=== PATIENT | female | born 1965 | race Caucasian/White ===

== ENCOUNTER → 2021-05-05 | Outpatient (CLI) | payer OTHER ==
--- NOTE | 2021-05-05 14:49 | P.HPBAR ---
Bariatric H&P - History & Physicial H&P Date: 05/05/21 History & Physicial: Visit/CC: Patient initial contact: Initial weight: Initial weight in pounds: Height: Initial BMI: Last weight: Current weight: Current weight in pounds: Current BMI: [place] body weight (based on NIH guidelines): Excess body weight loss: The patient is a 55 year-old F who presents for Bariatric Assessment. HPI: She had a sleeve 5 to 6 years ago, Jul 2015. She was doing well. She was in [place], [place] and Dr. Rose from [facility]. "I had picture perfect recovery." She lost 100 pounds. She was doing well until 3 years after the surgery. Her mother got sick and she felt she had a heart attack. She was diagnosed with reflux. She lost teeth from her severe gastroesophageal reflux disease. She was on omeprazole and Zantac. She lost two teeth despite her medications. She had a colonoscopy and EGD in July 2020. She was told that her stomach was folded over and a hiatal hernia. She was 260 pounds with the sleeve. She then saw a surgeon who did an esophagram and did a hiatal hernia and then a gastric bypass at 200 pounds. She had the worst recovery following her sleeve, Dr. Lopez Núñez out of [place], [place]. She had hives after her surgery. She has only been able to tolerate soups and protein shakes. She reports 20 pound weight gain during the pandemic last year. She had her gastric bypass conversion February 2021 at 200 pounds. She is barely 2 months out. She can g et fluids in but has trouble with textured. 1. Recommend records from operation 2. Esophagram 3. EGD 4. Recommend full bariatric labs 5. Recommend food allergy assessment Bariatric Checklist Checklist: Plan: Checklist: EGD: 1. Hiatal hernia: 2. H. Pylori: HgbA1c: Vitamin D: Smoking: Primary care physician referral: Psychiatry clearance: Cardiology clearance: Sleep study: Diet journal: VTE risk score: VTE risk level: Rehab needs at discharge:
[2021-05-05 15:52] LABS: HCT 36.1 % (34.0-46.0); HGB 12.4 gm/dL (11.4-16.0); MCHC 34.5 g/dL (31.0-37.0); MCV 92.9 fL (80.0-100.0); Mean Platelet Volume 7.8; Platelet Count 182 k/uL (150-450); RBC 3.89 m/uL (3.80-5.40); RDW 13.3 % (11.5-15.5); WBC 4.3 k/uL (3.8-10.6)
[2021-05-05 16:22] LABS: Partial Thromboplastin Time 22.5 sec (22.0-30.0); Prothrombin Time 10.7 sec (9.0-12.0)
[2021-05-05 16:58] VITALS: BP 110/72; PULSE 72; RESP 18; TEMP 98.6; BMI 29.9
[2021-05-05 22:40] LABS: Hemoglobin A1C 5.1 % (4.0-6.0)
[2021-05-06 02:30] LABS: % Iron Saturation 10.26 (12.00-45.00); African American GFR (CKD) 113.8 (60.0-200.0); Albumin 4.5 g/dL (3.80-4.90); Albumin/Globulin Ratio 2.37 (1.60-3.17); Anion Gap 10.7 mmol/L (4.00-12.00); BUN/Creat Ratio 18.57 Ratio (12.00-20.00); Calcium 8.8 mg/dL (8.7-10.3); Carbon Dioxide 26.3 mmol/L (21.6-31.8); Chol/HDL Ratio 2.81; Globulin 1.9 g/dL (1.6-3.3); LDL Cholesterol,Calculated 34.4 mg/dL (0.0-131.0); Magnesium 2.2 mg/dL (1.5-2.4); Non-African American GFR(CKD) 98.2 (60.0-200.0); Phosphorus 3.3 mg/dL (2.4-5.1); Potassium 3.9 mmol/L (3.5-5.5); Total Bilirubin 0.4 mg/dL (0.3-1.2); Total Protein 6.4 g/dL (6.2-8.2); VLDL Calculation 32.6 mg/dL (5.00-40.00)
[2021-05-06 02:38] LABS: Ferritin 69.2 ng/mL (10.0-291.0)
[2021-05-06 02:41] LABS: Folate, Serum 8.5 ng/mL
[2021-05-06 10:31] LABS: Zinc, Serum 56 ug/dL (60-130)
[2021-05-07 06:09] LABS: Vitamin A 32 ug/dL (38-106)
[2021-05-07 13:06] LABS: Vit B1(Thiamine) 63 ug/L (38-122)
== END ==
LOC: BARWHC3 14:21
PROVIDERS: ATTEND Surgery Plastic and Reconstructive Surgery
DX: E66.01 Morbid (severe) obesity due to excess calories (principal); E89.1 Postprocedural hypoinsulinemia; D50.8 Other iron deficiency anemias; E44.0 Moderate protein-calorie malnutrition; E55.9 Vitamin D deficiency, unspecified; K74.1 Hepatic sclerosis; N19 Unspecified kidney failure; K50.90 Crohn's disease, unspecified, without complications; Z88.2 Allergy status to sulfonamides; Z68.30 Body mass index [BMI] 30.0-30.9, adult
CPT/HCPCS: 36415; 80053; 80061; 82306; 82525; 82607; 82728; 82746; 83036; 83540; 83550; 83735; 83970; 84100; 84134; 84255; 84425; 84443; 84590; 84630; 85027; 85610; 85730; 99203

== ENCOUNTER → 2021-05-24 | Outpatient (CLI) | payer OTHER ==
--- NOTE | 2021-05-24 10:16 | FL ---
EXAMINATION TYPE: FL barium swallow DATE OF EXAM: 05/24/2021 COMPARISON: None HISTORY: Dysphagia TECHNIQUE: A single contrast UGI study is performed. FINDINGS: Contrast passes from the distal esophagus through the gastric sleeve revision Monet-en-Y wit h mild hesitancy. No focal stenosis at the anastomosis is identified. There is complete stripping of the esophageal moshe gerardo in the horizontal drinking position. A secondary contraction however was noted during the exam. IMPRESSIONS: 1. No focal stenosis at the Monet-en-Y anastomosis identified. Some mild hesitancy may be present. 2. Mild presbyesophagus
== END | disposition home or self-care (01) ==
LOC: RADUSWWP 08:53
PROVIDERS: ATTEND Surgery Plastic and Reconstructive Surgery
DX: K22.8 Other specified diseases of esophagus (principal)
CPT/HCPCS: 74220

== ENCOUNTER 2021-05-31 07:18 | Day surgery (SDC) | payer OTHER ==
[2021-05-26 11:19] VITALS: BMI 29.1
--- NOTE | 2021-05-31 05:16 | P.GSHP ---
History of Present Illness H&P Date: 05/31/21 CHIEF COMPLAINT: GERD HISTORY OF PRESENT ILLNESS: The patient is a 55-year-old female who presents reports gastroesophageal reflux disease. Upper endoscopy was offered for further evaluation and management. PAST MEDICAL HISTORY: Please see list. PAST SURGICAL HISTORY: Please see list. MEDICATIONS: Please see list. ALLERGIES: Please see list. SOCIAL HISTORY: No illicit drug use FAMILY HISTORY: No reports of Crohn disease or ulcerative colitis. REVIEW OF ORGAN SYSTEMS: CONSTITUTIONAL: No reports of fevers or chills. GI: Denies any blood in stools or constipation. PHYSICAL EXAM: VITAL SIGNS: Stable GENERAL: Well-developed and pleasant in no acute distress. HEENT: No scleral icterus. Extraocular movements grossly intact. Moist buccal mucosa. NECK: Supple without lymphadenopathy. CHEST: Unlabored respirations. Equal bilateral excursions. CARDIOVASCULAR: Regular rate and rhythm. Distal 2+ pulses. ABDOMEN: Soft, nondistended. MUSCULOSKELETAL: No clubbing, cyanosis, or edema. ASSESSMENT: 1. Gastroesophageal reflux disease PLAN: 1. Recommend proceeding with an upper endoscopy Past Medical History Past Medical History: GERD/Reflux, Thyroid Disorder History of Any Multi-Drug Resistant Organisms: None Reported Past Surgical History: Bariatric Surgery, Hysterectomy Additional Past Surgical History / Comment(s): sleeve gastrectomy 2015 co nversion to gastric bypass - Past Anesthesia/Blood Transfusion Reactions: Postoperative Nausea & Vomiting (PONV) Smoking Status: Never smoker - Past Family History Father Additional Family Medical History / Comment(s): LUNG CANCER Mother Family Medical History: Cancer Additional Family Medical History / Comment(s): PANCREATIC CANCER Brother(s) Family Medical History: Cancer Additional Family Medical History / Comment(s): COLON , LUNG CANCER Medications and Allergies Home Medications Medication Instructions Recorded Confirmed Type Omeprazole 40 mg PO DAILY 05/07/21 05/26/21 History PARoxetine [Paxil] 10 mg PO DAILY 05/07/21 05/26/21 History Allergies Allergy/AdvReac Type Severity Reaction Status Date / Time Sulfa (Sulfonamide Allergy Rash/Hives Verified 05/26/21 10:36 Antibiotics)
[~2021-05-31 07:18] MED LIST: LACTATED RINGERS 1,000 ML IV SCH; LIDOCAINE 1% (10MG/ML) FOR IV START INTRADERMA PRN
[2021-05-31 07:50] VITALS: RESP 16; TEMP 98.3
[2021-05-31] MEDS ORDERED: PROPOFOL 10 MG/ML 20 ML VIAL IV ONE (08:00)
[2021-05-31] MEDS ORDERED: LIDOCAINE 1% INJ 10MG/ML (20 ML MDV) ONE (08:00)
--- NOTE | 2021-05-31 08:24 | P.PCN ---
Date of Procedure: 05/31/21 Description of Procedure: PREOPERATIVE DIAGNOSIS: Dysphagia. Gastroesophageal reflux disease Nausea with vomiting. POSTOPERATIVE DIAGNOSIS: Dysphagia. Gastroesophageal reflux disease Nausea with vomiting. Gastrojejunal stricture without chronic ulcer without perforation OPERATION: Esophagogastrojejunoscopy with balloon dilatation from 6 to 16.5 mm. SURGEON: Nicole Hernandez MD ANESTHESIA: MAC. INDICATIONS: The patient is a 55-year-old female who presents with a history of dysphagia, gastric bypass including intractable nausea and vomiting. Benefits and risks of the procedure were described. Informed consent was obtained. DESCRIPTION: The patient was brought into the endoscopy suite and laid in the left lateral decubitus position. After a timeout was confirmed, the procedure was initiated. An Olympus gastroscope was passed along the posterior oropharynx down to the distal esophagus where the squamocolumnar junction was unremarkable. The gastric pouch was entered. A gastrojejunal stricture of 6 mm was found as the adult gastroscope was 9.5 mm in size. A Savage IO balloon dilator was placed through the scope. Insufflation at 10 mm up to 16.5 mm was performed with a total of 2 minutes. The scope was advanced up to 60 cm from the incisors into the Monet limb. The mucosa of the gastrojejunal anastomosis was intact. No chronic gastrojejunal marginal ulcer was encountered. No full-thickness injury was encountered. The GI tract was desufflated. The patient tolerated the procedure well. FINDINGS: Squamocolumnar junction unremarkable at 40 cm. Stricture of approximately 6 mm encountered. No chronic gastrojejunal ulceration encountered. Balloon dilatation to 16.5 mm. Gastric pouch 5 cm. RECOMMENDATIONS: 1. Repeat dilation in 4 weeks Plan - Discharge Summary Discharge Rx Participant: No New Discharge Prescriptions: Continue PARoxetine [Paxil] 10 mg PO DAILY Omeprazole 40 mg PO DAILY Discharge Medication List Omeprazole 40 mg PO DAILY 05/07/21 [History] PARoxetine [Paxil] 10 mg PO DAILY 05/07/21 [History] Follow up [facility]ointment(s[facility] [place] [facility] [place] [facility] Patient Instructions/Handouts: Esophageal Dilation (DC), Complete Blenderized Diet (DC) Activity/Diet/Wound Care/Special Instructions: Liquid diet today. Discharge Disposition: HOME SELF-CARE
[2021-05-31 08:47] VITALS: BP 100/64; PULSE 52
== END 2021-05-31 09:03 | disposition home or self-care (01) ==
LOC: ORWHC2ENDO 07:18
PROVIDERS: ATTEND Surgery Plastic and Reconstructive Surgery
DX: R13.10 Dysphagia, unspecified (principal); K21.9 Gastro-esophageal reflux disease without esophagitis; Z98.84 Bariatric surgery status; Z80.1 Family history of malignant neoplasm of trachea, bronchus and lung; Z88.2 Allergy status to sulfonamides; E07.9 Disorder of thyroid, unspecified; Z79.899 Other long term (current) drug therapy
CPT/HCPCS: 43245; J2001; J2704; C1726 ×2

== ENCOUNTER 2021-07-19 07:54 | Day surgery (SDC) | payer OTHER ==
[2021-07-16 08:45] VITALS: BMI 26.6
--- NOTE | 2021-07-19 06:56 | P.GSHP ---
History of Present Illness H&P Date: 07/19/21 CHIEF COMPLAINT: GERD HISTORY OF PRESENT ILLNESS: The patient is a 55-year-old female who presents reports gastroesophageal reflux disease. Upper endoscopy was offered for further evaluation and management. PAST MEDICAL HISTORY: Please see list. PAST SURGICAL HISTORY: Please see list. MEDICATIONS: Please see list. ALLERGIES: Please see list. SOCIAL HISTORY: No illicit drug use FAMILY HISTORY: No reports of Crohn disease or ulcerative colitis. REVIEW OF ORGAN SYSTEMS: CONSTITUTIONAL: No reports of fevers or chills. GI: Denies any blood in stools or constipation. PHYSICAL EXAM: VITAL SIGNS: Stable GENERAL: Well-developed and pleasant in no acute distress. HEENT: No scleral icterus. Extraocular movements grossly intact. Moist buccal mucosa. NECK: Supple without lymphadenopathy. CHEST: Unlabored respirations. Equal bilateral excursions. CARDIOVASCULAR: Regular rate and rhythm. Distal 2+ pulses. ABDOMEN: Soft, nondistended. MUSCULOSKELETAL: No clubbing, cyanosis, or edema. ASSESSMENT: 1. Gastroesophageal reflux disease PLAN: 1. Recommend proceeding with an upper endoscopy Past Medical History Past Medical History: GERD/Reflux, Thyroid Disorder Additional Past Medical History / Comment(s): gastric bypass, dysphagia with vomiting History of Any Multi-Drug Resistant Organisms: None Reported Past Surgical History: Bariatric Surgery, Hysterectomy Additional Past Surgical History / Comment(s): sleeve gastrectomy 2015 conversion to gastric bypass 03-17, egd with dilation 05/31/21. Past Anesthesia/Blood Transfusion Reactions: Postoperative Nausea & Vomiting (PONV) Past Psychological History: No Psychological Hx Reported Additional Psychological History / Comment(s): TAKE PAROXETINE FOR "HOT FLASHES" Smoking Status: Never smoker Past Alcohol Use History: None Reported Past Drug Use History: None Reported - Past Family History Father Additional Family Medical History / Comment(s): LUNG CANCER Mother Family Medical History: Cancer Additional Family Medical History / Comment(s): PANCREATIC CANCER Brother(s) Family Medical History: Cancer Additional Family Medical History / Comment(s): COLON , LUNG CANCER Medications and Allergies Home Medications Medication Instructions Recorded Confirmed Type Omeprazole 40 mg PO DAILY 05/07/21 07/16/21 History PARoxetine [Paxil] 10 mg PO DAILY 05/07/21 07/16/21 History Ferrous Sulfate [Iron] 325 mg PO DAILY 06/09/21 07/16/21 History Zinc 50 mg PO DAILY 06/09/21 07/16/21 History Levothyroxine Sodium 150 mcg PO DAILY #30 tablet 06/23/21 07/16/21 Rx Multivitamins, Thera [Multivitamin 1 tab PO DAILY 07/16/21 07/16/21 History (formulary)] Allergies Allergy/AdvReac Type Severity Reaction Status Date / Time Sulfa (Sulfonamide Allergy Rash/Hives Verified 07/16/21 08:23 Antibiotics)
[~2021-07-19 07:54] MED LIST changes: +LACTATED RINGERS 1,000 ML IV ONE; -LIDOCAINE 1% (10MG/ML) FOR IV START INTRADERMA PRN
[2021-07-19] MEDS ORDERED: LIDOCAINE 1% (10MG/ML) FOR IV START INTRADERMA ONE (08:30)
[2021-07-19] MEDS ORDERED: PROPOFOL 10 MG/ML 20 ML VIAL IV ONE (09:06)
--- NOTE | 2021-07-19 09:29 | P.PCN ---
Date of Procedure: 07/19/21 Description of Procedure: PREOPERATIVE DIAGNOSIS: Dysphagia. Gastrojejunal stricture without chronic ulcer without perforation Gastroesophageal reflux disease POSTOPERATIVE DIAGNOSIS: Dysphagia. Gastroesophageal reflux disease Gastrojejunal stricture without chronic ulcer without perforation OPERATION: Esophagogastrojejunoscopy with balloon dilatation from 9 to 18 mm. SURGEON: Nicole Hernandez MD ANESTHESIA: MAC. INDICATIONS: The patient is a 55-year-old female who presents with a history of dysphagia, gastric bypass including intractable nausea and vomiting. Benefits and risks of the procedure were described. Informed consent was obtained. DESCRIPTION: The patient was brought into the endoscopy suite and laid in the left lateral decubitus position. After a timeout was confirmed, the procedure was initiated. An Olympus gastroscope was passed along the posterior oropharynx down to the distal esophagus where the squamocolumnar junction was unremarkable. The gastric pouch was entered. A gastrojejunal stricture of 10 mm was found as the adult gastroscope was 9.5 mm in size. A SupportBee balloon dilator was placed through the scope. Insufflation at 18 mm up to 16.5 mm was performed with a total of 2 minutes. The scope was advanced up to 60 cm from the incisors into the Monet limb. The mucosa of the gastrojejunal anastomosis was intact. No chronic gastrojejunal marginal ulcer was encountered. No full-thickness injury was encountered. The GI tract was desufflated. The patient tolerated the procedure well. FINDINGS: Squamocolumnar junction unremarkable at 40 cm. Stricture of approximately 10 mm encountered. No chronic gastrojejunal ulceration encountered. Balloon dilatation to 18 mm. Gastric pouch 5 cm. RECOMMENDATIONS: 1. Upper endoscopy as needed Plan - Discharge Summary New Discharge Prescriptions: Continue PARoxetine [Paxil] 10 mg PO DAILY Ferrous Sulfate [Iron] 325 mg PO DAILY Omeprazole 40 mg PO DAILY Zinc 50 mg PO DAILY Levothyroxine Sodium 150 mcg PO DAILY #30 tablet Multivitamins, Thera [Multivitamin (formulary)] 1 tab PO DAILY Discharge Medication List Omeprazole 40 mg PO DAILY 05/07/21 [History] PARoxetine [Paxil] 10 mg PO DAILY 05/07/21 [History] Ferrous Sulfate [Iron] 325 mg PO DAILY 06/09/21 [History] Zinc 50 mg PO DAILY 06/09/21 [History] Levothyroxine Sodium 150 mcg PO DAILY #30 tablet 06/23/21 [Rx] Multivitamins, Thera [Multivitamin (formulary)] 1 tab PO DAILY 07/16/21 [History] Follow up [facility]ment(s[place] [facility] [place] - As Needed Patient Instructions/Handouts: Esophageal Dilation (DC) Activity/Diet/Wound Care/Special Instructions: Diet as tolerated Discharge Disposition: HOME SELF-CARE
[2021-07-19 09:40] VITALS: BP 123/78; PULSE 67; RESP 18
== END 2021-07-19 09:51 | disposition home or self-care (01) ==
LOC: ORWHC2ENDO 07:54
PROVIDERS: ATTEND Surgery Plastic and Reconstructive Surgery
DX: K95.89 Other complications of other bariatric procedure (principal); K21.9 Gastro-esophageal reflux disease without esophagitis; E07.9 Disorder of thyroid, unspecified; Z90.710 Acquired absence of both cervix and uterus; Z80.1 Family history of malignant neoplasm of trachea, bronchus and lung; Z80.0 Family history of malignant neoplasm of digestive organs; Z79.890 Hormone replacement therapy; Z79.899 Other long term (current) drug therapy; Z88.2 Allergy status to sulfonamides
CPT/HCPCS: 84443; 43249; J2704; C1726

== ENCOUNTER → 2021-07-19 | Outpatient (CLI) | payer OTHER | END | disposition home or self-care (01) | LOC: LABWHC1 07:18 | PROVIDERS: ATTEND Surgery Plastic and Reconstructive Surgery | DX: Z53.9 Procedure and treatment not carried out, unspecified reason (principal) ==

== ENCOUNTER → 2021-10-20 | Outpatient (CLI) | payer OTHER ==
[2021-10-20 16:32] VITALS: BP 124/75; PULSE 61; RESP 16; TEMP 98.2; BMI 28.3
[2021-10-20 23:13] LABS: LDL Cholesterol,Calculated 57.2 mg/dL (0.0-131.0); Prealbumin 18.5 mg/dL (18.0-42.0)
[2021-10-20 23:27] LABS: HGB 11.7 g/dL (12.0-15.0); MCH 30.6 pg (27.0-32.0); MCHC 32.5 g/dL (32.0-37.0); MCV 94.2 fL (80.0-97.0); Mean Platelet Volume 10.4 fL (9.5-12.2); NRBC Per 100 WBC 0 /100 WBCS (0.0-0.0); Platelet Count 211 X 10*3/uL (140-440); RBC 3.82 X 10*6/uL (4.10-5.20); RDW 12.8 % (11.5-14.5); WBC 4.62 X 10*3/uL (4.50-10.00)
[2021-10-20 23:44] LABS: INR 0.99 (0.90-1.11); Partial Thromboplastin Time 25.1 sec (23.5-31.0); Prothrombin Time 10.9 sec (9.9-11.9)
[2021-10-21 01:31] LABS: ALT 23 U/L (8-44); AST 19 U/L (13-35); African American GFR (CKD) 118.9 (60.0-200.0); Albumin 4.5 g/dL (3.8-4.9); Albumin/Globulin Ratio 2.12 (1.60-3.17); Alkaline Phosphatase 98 U/L (41-126); BUN/Creat Ratio 17.97 Ratio (12.00-20.00); Blood Urea Nitrogen 10.8 mg/dL (9.0-27.0); Calcium 9.3 mg/dL (8.7-10.3); Carbon Dioxide 20.5 mmol/L (20.0-27.5); Chloride 106 mmol/L (96-109); Ferritin 39.5 ng/mL (10.0-291.0); Globulin 2.1 g/dL (1.6-3.3); Glucose 78 mg/dL (70-110); Iron 65 ug/dL (50-170); Magnesium 2.4 mg/dL (1.5-2.4); Non-African American GFR(CKD) 102.6 (60.0-200.0); Phosphorus 3.6 mg/dL (2.4-5.1); Potassium 3.7 mmol/L (3.5-5.5); Sodium 142 mmol/L (135-145); Total Iron Binding Capacity 428 ug/dL (228-460); Total Protein 6.6 g/dL (6.2-8.2)
[2021-10-21 11:56] LABS: Zinc, Serum 63 ug/dL (60-130)
[2021-10-22 06:55] LABS: Vitamin A 44 ug/dL (38-106)
[2021-10-23 14:22] LABS: Selenium 112 mcg/L (63-160)
[2021-10-27 12:40] LABS: Vit B1(Thiamine) 71 ug/L (38-122)
--- NOTE | 2022-01-02 22:15 | P.BASOAP ---
Subjective Progress Note Date: 10/20/21 DATE OF SERVICE: 10/20/2021 CHIEF COMPLAINT: Status post sleeve gastrectomy HISTORY OF PRESENT ILLNESS: Mary Odell is a 55-year-old female who had a sleeve 5 to 6 years ago, Jul 2015. She had her gastric bypass conversion February 2021. She had complications from her conversion from a sleeve gastrectomy to gastric bypass including dysphagia. She is 7 months out. She for follow up after dilitation. She can eat textured foods but still has trouble with steak and chicken. At height of 5 feet 5 inches, her ideal body weight is 149 pounds. Her highest weight was 260 pounds, body mass index of 43.4. She comes in 170 pounds from 167 pounds, 2 month ago. She has gained 2 pounds in 2 months. She has lost 90 pounds lifetime. Percent lifetime excess weight loss of 81 %. Her body mass index is 28.3. She is 21 pounds overweight. PHYSICAL EXAM: VITAL SIGNS: Height 5 foot 5 inches, weight 170 pounds. BMI 28.3 Vital Signs Temp 98.2 F 10/20/21 16:29 Pulse 61 10/20/21 16:29 Resp 16 10/20/21 16:29 BP 124/75 10/20/21 16:29 Pulse Ox GENERAL: Well-developed in no acute distress. HEENT: No scleral icterus. Extraocular movements grossly intact. Hears conversational speech. No nasal drainage. NECK: Supple without lymphadenopathy. CHEST: Nonlabored respirations with equal bilateral excursions. CARDIOVASCULAR: Regular rate and regular rhythm. Distal 2+ pulses. ABDOMEN: Obese, soft, nontender, nondistended. MUSCULOSKELETAL: No clubbing, cyanosis. NEURO: No focal or lateralizing signs. Cranial nerves 2 through 12 grossly within normal limits. PSYCH: Appropriate affect. Alert and oriented to person, place and time. SKIN: Good skin turgor. Well perfused. ASSESSMENT: 1. Morbid obesity due to excess calories 2. Body mass index of 43.4 to 28.3 3. Hypothyroidism 4. Depressive disorder 5. Gastroesophageal reflux disease with hiatal hernia 6. 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 7. Complications of sleeve gastrectomy. 8. Dysphagia 9. Gastrojejunal stricture 10. 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 Zinc deficiency 13. Elevated LFTs 14. Iron deficiency 15. Hypertriglyceridemia PLAN: 1. Recommend upper endoscopy as needed for dysphagia. 2. Recommend bariatric labs and correction deficiences. Objective - Vital Signs Vital signs: Vital Signs Temp 98.2 F 10/20/21 16:29 Pulse 61 10/20/21 16:29 Resp 16 10/20/21 16:29 BP 124/75 10/20/21 16:29 Pulse Ox - Labs CBC & Chem 7: 10/20/21 16:55 10/20/21 16:55 Assessment/Plan Plan: Date: 10/20/21 Initial Weight: 77.111 kg Initial BMI: 28.3 Current Weight: 77.111 kg Current BMI: 28.3 Type of Surgery: Total Volume in Band: Previous Volume: Volume Removed: Volume Added: Band Size:
== END ==
LOC: BARWHC3 16:00
PROVIDERS: ATTEND Surgery Plastic and Reconstructive Surgery
DX: E66.01 Morbid (severe) obesity due to excess calories (principal); D50.8 Other iron deficiency anemias; K91.2 Postsurgical malabsorption, not elsewhere classified; E44.0 Moderate protein-calorie malnutrition; E45 Retarded development following protein-calorie malnutrition; E55.9 Vitamin D deficiency, unspecified; K74.1 Hepatic sclerosis; N19 Unspecified kidney failure; K50.90 Crohn's disease, unspecified, without complications; Z68.28 Body mass index [BMI] 28.0-28.9, adult; F32.A Depression, unspecified; K21.9 Gastro-esophageal reflux disease without esophagitis; K44.9 Diaphragmatic hernia without obstruction or gangrene; K95.89 Other complications of other bariatric procedure; R13.10 Dysphagia, unspecified; E50.9 Vitamin A deficiency, unspecified; E03.8 Other specified hypothyroidism; E60 Dietary zinc deficiency; E78.1 Pure hyperglyceridemia; R94.5 Abnormal results of liver function studies; Z88.2 Allergy status to sulfonamides
CPT/HCPCS: 80053; 80061; 82306; 82525; 82607; 82728; 83036; 83540; 83550; 83735; 83970; 84100; 84134; 84255; 84425; 84443; 84590; 84630; 85027; 85610; 85730; 99211

== ENCOUNTER 2023-01-09 07:58 | Day surgery (SDC) | payer BC ==
[2023-01-04 12:06] VITALS: BMI 29.8
--- NOTE | 2023-01-09 07:44 | P.GSHP ---
History of Present Illness H&P Date: 01/09/23 CHIEF COMPLAINT: GERD HISTORY OF PRESENT ILLNESS: The patient is a 57-year-old female who presents reports gastroesophageal reflux disease. Upper endoscopy was offered for further evaluation and management. PAST MEDICAL HISTORY: Please see list. PAST SURGICAL HISTORY: Please see list. MEDICATIONS: Please see list. ALLERGIES: Please see list. SOCIAL HISTORY: No illicit drug use FAMILY HISTORY: No reports of Crohn disease or ulcerative colitis. REVIEW OF ORGAN SYSTEMS: CONSTITUTIONAL: No reports of fevers or chills. GI: Denies any blood in stools or constipation. PHYSICAL EXAM: VITAL SIGNS: Stable GENERAL: Well-developed and pleasant in no acute distress. HEENT: No scleral icterus. Extraocular movements grossly intact. Moist buccal mucosa. NECK: Supple without lymphadenopathy. CHEST: Unlabored respirations. Equal bilateral excursions. CARDIOVASCULAR: Regular rate and rhythm. Distal 2+ pulses. ABDOMEN: Soft, nondistended. MUSCULOSKELETAL: No clubbing, cyanosis, or edema. ASSESSMENT: 1. Gastroesophageal reflux disease PLAN: 1. Recommend proceeding with an upper endoscopy Past Medical History Past Medical History: GERD/Reflux, Thyroid Disorder Additional Past Medical History / Comment(s): dysphagia, osteoporosis History of Any Multi-Drug Resistant Organisms: None Reported Past Surgical History: Bariatric Surgery, Hysterectomy Additional Past Surgical History / Comment(s): sleeve gastrectomy 2015 conversion to gastric bypass 03-17, egd with dilation 05/31/21. Past Anesthesia/Blood Transfusion Reactions: Postoperative Nausea & Vomiting (PONV) Past Psychological History: No Psychological Hx Reported Additional Psychological History / Comment(s): TAKE PAROXETINE FOR "HOT FLASHES" Smoking Status: Never smoker Past Alcohol Use History: None Reported Past Drug Use History: None Reported - Past Family History Father Additional Family Medical History / Comment(s): LUNG CANCER Mother Family Medical History: Cancer Additional Family Medical History / Comment(s): PANCREATIC CANCER Brother(s) Family Medical History: Cancer Additional Family Medical History / Comment(s): COLON , LUNG CANCER Medications and Allergies Home Medications Medication Instructions Recorded Confirmed Type Omeprazole 40 mg PO PC-LUNCH 05/07/21 01/04/23 History PARoxetine [Paxil] 10 mg PO HS 05/07/21 01/04/23 History Multivitamins, Thera [Multivitamin 1 tab PO DAILY 07/16/21 01/04/23 History (formulary)] Calcium Carbonate [Calcium] 600 mg PO BID 11/02/22 01/04/23 History Ergocalciferol [Vitamin D2 (1250 1 tab PO DIRECTED 11/02/22 01/04/23 History Mcg = 89461 Iu)] Levothyroxine Sodium 100 mcg PO QAM 11/02/22 01/04/23 History Allergies Allergy/AdvReac Type Severity Reaction Status Date / Time Sulfa (Sulfonamide Allergy Rash/Hives Verified 01/04/23 11:57 Antibiotics)
[2023-01-09 08:25] VITALS: TEMP 98.7
[2023-01-09] MEDS ORDERED: LIDOCAINE 1% (10MG/ML) FOR IV START INTRADERMA ONE (08:30)
[2023-01-09] MEDS ORDERED: LACTATED RINGERS 1,000 ML IV ONE (08:30)
[2023-01-09] MEDS ORDERED: PROPOFOL 10 MG/ML 20 ML VIAL IV ONE (08:40)
[2023-01-09] MEDS ORDERED: LIDOCAINE 2% INJ 20 MG/ML (2 ML VIAL) ONE (08:40)
--- NOTE | 2023-01-09 09:02 | P.PCN ---
Date of Procedure: 01/09/23 Description of Procedure: PREOPERATIVE DIAGNOSIS: Dysphagia. s/p Monet-en-y gastric bypass. POSTOPERATIVE DIAGNOSIS: Dysphagia. s/p Monet-en-y gastric bypass. Diaphragmatic hiatal hernia Gastrojejunal stricture with chronic ulcer without perforation OPERATION: Esophagogastrojejunoscopy with balloon dilatation from 15 to 20 mm. SURGEON: Nicole Hernandez MD ANESTHESIA: MAC. INDICATIONS: The patient is a 57-year-old female who presents with a history of dysphagia, gastric bypass. Benefits and risks of the procedure were described. Informed consent was obtained. DESCRIPTION: The patient was brought into the endoscopy suite and laid in the left lateral decubitus position. After a timeout was confirmed, the procedure was initiated. An Olympus gastroscope was passed along the posterior oropharynx down to the distal esophagus where the squamocolumnar junction was unremarkable. The gastric pouch was entered. A gastrojejunal stricture of 15 mm was found as the adult gastroscope was 9.5 mm in size. A Testin balloon dilator was placed through the scope. Final insufflation up to 20 mm was performed with a total of 2 minutes. The scope was advanced up to 60 cm from the incisors into the Monet limb. The mucosa of the gastrojejunal anastomosis was intact. However chronic gastrojejunal marginal ulcer was encountered. No full-thickness injury was encountered. The GI tract was desufflated. The patient tolerated the procedure well. FINDINGS: Squamocolumnar junction unremarkable at 38 cm. Stricture of approximately 15 mm encountered. Chronic gastrojejunal ulceration encountered, 3 mm, marginal ulceration Successful balloon dilatation to 20 mm. Diaphragmatic hiatus at 40 cm. Diaphragmatic hiatal hernia 2 cm Gastric pouch 3 cm. RECOMMENDATIONS: Start combined therapy of Carafate and omeprazole of at least 2 weeks. Plan - Discharge Summary Discharge Rx Participant: No New Discharge Prescriptions: New Sucralfate [Carafate] 1 gm PO BID #30 tablet Continue PARoxetine [Paxil] 10 mg PO HS Calcium Carbonate [Calcium] 600 mg PO BID Levothyroxine Sodium 100 mcg PO QAM Omeprazole 40 mg PO PC-LUNCH Multivitamins, Thera [Multivitamin (formulary)] 1 tab PO DAILY Ergocalciferol [Vitamin D2 (1250 Mcg = 70161 Iu)] 1 tab PO DIRECTED Discharge Medication List Omeprazole 40 mg PO PC-LUNCH 05/07/21 [History] PARoxetine [Paxil] 10 mg PO HS 05/07/21 [History] Multivitamins, Thera [Multivitamin (formulary)] 1 tab PO DAILY 07/16/21 [History] Calcium Carbonate [Calcium] 600 mg PO BID 11/02/22 [History] Ergocalciferol [Vitamin D2 (1250 Mcg = 41558 Iu)] 1 tab PO DIRECTED 11/02/22 [History] Levothyroxine Sodium 100 mcg PO QAM 11/02/22 [History] Sucralfate [Carafate] 1 gm PO BID #30 tablet 01/09/23 [Rx] Follow up Appointment(s)/Referral(s): [facility] [[facility]-STAFF] - 02/01/23 Patient Instructions/Handouts: Diet for Stomach Ulcers and Gastritis (ED), Hiatal Hernia (DC) Discharge Disposition: HOME SELF-CARE
[2023-01-09 09:17] VITALS: BP 117/75; PULSE 63; RESP 20
== END 2023-01-09 09:49 | disposition home or self-care (01) ==
LOC: ORWHC2ENDO 07:58
PROVIDERS: ATTEND Surgery Plastic and Reconstructive Surgery
DX: K91.89 Other postprocedural complications and disorders of digestive system (principal); K29.50 Unspecified chronic gastritis without bleeding; K21.9 Gastro-esophageal reflux disease without esophagitis; K44.9 Diaphragmatic hernia without obstruction or gangrene; Z98.0 Intestinal bypass and anastomosis status; Z79.899 Other long term (current) drug therapy; E03.9 Hypothyroidism, unspecified; Z98.84 Bariatric surgery status; Z80.0 Family history of malignant neoplasm of digestive organs; Z88.2 Allergy status to sulfonamides
CPT/HCPCS: 88305; 43249; 43239; J2704; J2001; C1726

== ENCOUNTER → 2023-02-01 | Outpatient (CLI) | payer BC ==
[2023-02-01 14:45] VITALS: BP 135/86; PULSE 67; RESP 13; TEMP 98; BMI 31.9
--- NOTE | 2023-02-01 15:44 | P.BASOAP ---
Subjective Progress Note Date: 02/01/23 She has horrible reflux despite medications of carafate and omeprazole. She still has dysphagia. Labs done at [facility]. Erx to local Plan for dietary changes with hiatal hernia repair. She has dysphagia. SHe has chest pain. Needs cardiac clarance. Last stress test 2 years ago. Objective - Vital Signs Vital signs: Vital Signs Temp 98 F 02/01/23 14:38 Pulse 67 02/01/23 14:38 Resp 13 02/01/23 14:38 BP 135/86 02/01/23 14:38 Pulse Ox FiO2 Intake & Output 01/31/23 02/01/23 02/01/23 18:59 06:59 18:59 Weight 87.09 kg Assessment/Plan Plan: Date: 02/01/23 Initial Weight: 77.111 kg Initial BMI: 28.3 Current Weight: 87.09 kg Current BMI: 31.9 Type of Surgery: Total Volume in Band: Previous Volume: Volume Removed: Volume Added: Band Size:
== END ==
LOC: BARWHC3 14:09
PROVIDERS: ATTEND Surgery Plastic and Reconstructive Surgery
DX: E66.01 Morbid (severe) obesity due to excess calories (principal); Z68.31 Body mass index [BMI] 31.0-31.9, adult; Z88.2 Allergy status to sulfonamides
CPT/HCPCS: 99211

== ENCOUNTER → 2023-02-10 | Outpatient (CLI) | payer BC | END | disposition home or self-care (01) | LOC: LABWHC1 08:02 | PROVIDERS: ATTEND Surgery Plastic and Reconstructive Surgery | DX: Z01.812 Encounter for preprocedural laboratory examination (principal); R94.31 Abnormal electrocardiogram [ECG] [EKG] | CPT/HCPCS: 36415; 93005 ==

== ENCOUNTER → 2023-08-09 | Outpatient (CLI) | payer BC ==
[2023-08-09 15:28] VITALS: BP 149/76; PULSE 60; TEMP 98.1; BMI 33.6
--- NOTE | 2023-08-09 16:02 | P.BASOAP ---
Subjective Progress Note Date: 08/09/23 DATE OF SERVICE: 08/09/23 CHIEF COMPLAINT: Status post sleeve gastrectomy HISTORY OF PRESENT ILLNESS: Mary Campon) is a 57-year-old female who had a sleeve gastrectomy, Jul 2015. She had her gastric bypass conversion February 2021. She is 2 years out. She has gained 20 pounds in 9 months. She reports atypical chest pain. She reports having cardiac risk assessment which was unremarkable. She now comes in hiatal hernia. At height of 5 feet 5 inches, her ideal body weight is 149 pounds. Her highest weight was 260 pounds, body mass index of 43.4. She comes in 202 pounds from 177 pounds, 2 years ago. She has gained 32 pounds in 2 years. She has lost 58 pounds lifetime. Percent lifetime excess weight loss of 52%. Her body mass index is 33.6. She is 53 pounds overweight. PAST MEDICAL HISTORY: 1. Morbid obesity due to excess calories 2. Body mass index of 43.4, initial 3. Hypothyroidism 4. Depressive disorder 5. Gastroesophageal reflux disease with hiatal hernia PAST SURGICAL HISTORY: 1. Gastric bypass, 2014 2. Hysterectomy 3. Sleeve gastrectomy to gastric bypass, February 2021 HOME MEDICATIONS: Home Medications Medication Instructions Recorded Confirmed Omeprazole 40 mg PO BID 05/07/21 08/09/23 PARoxetine [Paxil] 20 mg PO HS 05/07/21 08/09/23 Multivitamins, Thera [Multivitamin 1 tab PO DAILY 07/16/21 08/09/23 (formulary)] Calcium Carbonate [Calcium] 600 mg PO BID 11/02/22 08/09/23 Ergocalciferol [Vitamin D2 (1250 1 tab PO DIRECTED 11/02/22 08/09/23 Mcg = 41505 Iu)] Levothyroxine Sodium 100 mcg PO QAM 11/02/22 08/09/23 Previous Rx's Medication Instructions Recorded Sucralfate [Carafate] 1 gm PO BID #120 tablet 02/01/23 ALLERGIES: Allergies Allergy/AdvReac Type Severity Reaction Status Date / Time Sulfa (Sulfonamide Allergy Rash/Hives Verified 02/01/23 14:39 Antibiotics) SOCIAL HISTORY: Denies past tobacco use. FAMILY HISTORY: No family history of ulcerative colitis disease or Crohn's disease. Family history of morbid obesity. No lupus in the family. No reports of stomach or esophageal cancer. REVIEW OF ORGAN SYSTEMS: CONSTITUTIONAL: At height of 5 feet 5 inches, her ideal body weight is 149 pounds. Her highest weight was 260 pounds, body mass index of 43.4. She comes in 180 pounds. She has lost 80 pounds lifetime. Percent lifetime excess weight loss of 72%. Her body mass index is 30.0. She is 31 pounds overweight. HEENT: Denies any active troubles with vision or hearing. Has troubles with swallowing. ENDOCRINE: Denies diabetes. No hypothyroidism. CARDIOVASCULAR: Past reports of palpitations or heart attacks or chest pain. RESPIRATORY: Denies daytime somnolence. Denies dysnea. GASTROINTESTINAL: Denies any bright red blood per rectum. No diarrhea. No constipation. Has gastroesophageal reflux disease. GENITOURINARY: Denies bladder urgency. No recent blood in urine MUSCULOSKELETAL: Has lower back pain and joint pain. NEURO: No headaches. No seizure disorders. PSYCH: Has depression. No suicidal ideation. RHEUMATOLOGIC: No lupus. No rheumatoid arthritis. HEMATOLOGIC: Denies any abnormal bleeding or bruising. SKIN: No rash. No skin cancer. PHYSICAL EXAM: VITAL SIGNS: Height 5 foot 5 inches, weight 202 pounds. BMI 33.6 Vital Signs Temp 98.1 F 08/09/23 15:19 Pulse 60 08/09/23 15:19 Resp BP 149/76 08/09/23 15:19 Pulse Ox FiO2 GENERAL: Well-developed in no acute distress. HEENT: No scleral icterus. Extraocular movements grossly intact. Hears conversational speech. No nasal drainage. NECK: Supple without lymphadenopathy. CHEST: Nonlabored respirations with equal bilateral excursions. CARDIOVASCULAR: Regular rate and regular rhythm. Distal 2+ pulses. ABDOMEN: Obese, soft, nontender, nondistended. MUSCULOSKELETAL: No clubbing, cyanosis. NEURO: No focal or lateralizing signs. Cranial nerves 2 through 12 grossly within normal limits. PSYCH: Appropriate affect. Alert and oriented to person, place and time. SKIN: Good skin turgor. Well perfused. EKG: EKG demonstrates inferior ischemia anterior lateral with ST and T-wave abnormality EGD FINDINGS: Squamocolumnar junction unremarkable at 38 cm. Stricture of approximately 15 mm encountered. Chronic gastrojejunal ulceration encountered, 3 mm, marginal ulceration Successful balloon dilatation to 20 mm. Diaphragmatic hiatus at 40 cm. Diaphragmatic hiatal hernia 2 cm Gastric pouch 3 cm. Final Pathologic Diagnosis GASTRIC POUCH, BIOPSY: Minimal chronic gastritis. Helicobacter pylori organisms are not identified on routine H+E sections. ASSESSMENT: 1. Morbid obesity due to excess calories 2. Body mass index of 43.4 to 33.6 3. Hypothyroidism 4. Depressive disorder 5. Gastroesophageal reflux disease with hiatal hernia 6. 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 7. Complications of sleeve gastrectomy. 8. Dysphagia 9. Gastrojejunal stricture 10. 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 Zinc deficiency 13. Elevated LFTs 14. Iron deficiency 15. Hypertriglyceridemia 16. Chronic gastrojejunal ulcer 17. Diaphragmatic hiatal hernia PLAN: 1. She has gained moderate weight gain of 20 pounds in 9 months. Will need adjustment of her diet. 2. Recommend cardiac risk assessment due to change in EKG 3. She has hiatal hernia for which she is elevated risk due to multiple prior surgeries 4. Recommend 2 week protein diet Objective - Vital Signs Vital signs: Vital Signs Temp 98.1 F 08/09/23 15:19 Pulse 60 08/09/23 15:19 Resp BP 149/76 08/09/23 15:19 Pulse Ox FiO2 Intake & Output 08/08/23 08/09/23 08/09/23 18:59 06:59 18:59 Weight 91.626 kg Assessment/Plan Plan: Date: 08/09/23 Initial Weight: 77.111 kg Initial BMI: 28.3 Current Weight: 91.626 kg Current BMI: 33.6 Type of Surgery: Total Volume in Band: Previous Volume: Volume Removed: Volume Added: Band Size:
== END ==
LOC: BARWHC3 14:59
PROVIDERS: ATTEND Surgery Plastic and Reconstructive Surgery
DX: K21.9 Gastro-esophageal reflux disease without esophagitis (principal); E66.01 Morbid (severe) obesity due to excess calories; E03.9 Hypothyroidism, unspecified; F32.A Depression, unspecified; R13.10 Dysphagia, unspecified; K31.89 Other diseases of stomach and duodenum; E50.9 Vitamin A deficiency, unspecified; E21.1 Secondary hyperparathyroidism, not elsewhere classified; E60 Dietary zinc deficiency; R74.01 Elevation of levels of liver transaminase levels; E61.1 Iron deficiency; E78.1 Pure hyperglyceridemia; K95.89 Other complications of other bariatric procedure; K28.7 Chronic gastrojejunal ulcer without hemorrhage or perforation; K44.0 Diaphragmatic hernia with obstruction, without gangrene; Z98.84 Bariatric surgery status; Z88.2 Allergy status to sulfonamides; Z68.33 Body mass index [BMI] 33.0-33.9, adult; Z79.890 Hormone replacement therapy
CPT/HCPCS: 99211

== ENCOUNTER → 2023-12-13 | Outpatient (CLI) | payer BC ==
[2023-12-13 11:17] LABS: Basophils # (A) 0.06 X 10*3/uL (0.00-0.10); Basophils % (A) 1.1 %; Eosinophils # (A) 0.07 X 10*3/uL (0.04-0.35); Eosinophils % (A) 1.3 %; HCT 38.5 % (37.2-46.3); HGB 12.7 g/dL (12.0-15.0); Lymphocytes # (A) 2.19 X 10*3/uL (0.90-5.00); Lymphocytes % (A) 41.5 %; MCH 31.1 pg (27.0-32.0); MCV 94.1 FL (80.0-97.0); Mean Platelet Volume 10.8 FL (9.5-12.2); Monocytes # (A) 0.42 X 10*3/uL (0.20-1.00); NRBC Per 100 WBC 0 X 10*3/uL (0.00-0.01); Neutrophils # (A) 2.53 X 10*3/uL (1.80-7.70); Neutrophils % (A) 47.9 %; Platelet Count 210 X 10*3/uL (140-440); RBC 4.09 X 10*6/uL (4.10-5.20); RDW 12.8 % (11.5-14.5); WBC 5.28 X 10*3/uL (4.50-10.00)
[2023-12-13 11:38] LABS: ALT 20 U/L (8-44); AST 20 U/L (13-35); Albumin 4.6 g/dL (3.8-4.9); Albumin/Globulin Ratio 2.09 Ratio (1.60-3.17); Alkaline Phosphatase 89 U/L (41-126); BUN/Creat Ratio 27.29 Ratio (12.00-20.00); Blood Urea Nitrogen 19.1 mg/dL (9.0-27.0); Calcium 9.6 mg/dL (8.7-10.3); Carbon Dioxide 25.4 mmol/L (21.6-31.8); Chloride 106 mmol/L (96-109); Globulin 2.2 g/dL (1.6-3.3); Glucose 97 mg/dL (70-110); Potassium 4.1 mmol/L (3.5-5.5); Sodium 142 mmol/L (135-145); Total Bilirubin 0.3 mg/dL (0.3-1.2); Total Protein 6.8 g/dL (6.2-8.2)
== END | disposition home or self-care (01) ==
LOC: LABPAT 07:17
PROVIDERS: ATTEND Surgery Plastic and Reconstructive Surgery
DX: Z01.812 Encounter for preprocedural laboratory examination (principal)
CPT/HCPCS: 36415; 80053; 85025; 86850; 86900; 86901

== ENCOUNTER 2023-12-18 07:22 | Day surgery (SDC) | payer BC ==
--- NOTE | 2023-12-18 06:41 | P.GSHP ---
History of Present Illness H&P Date: 12/18/23 CHIEF COMPLAINT: Hiatal hernia HISTORY OF PRESENT ILLNESS: Mary Lopez is a 58-year-old female who had a sleeve gastrectomy, Jul 2015. She had her gastric bypass conversion February 2021. She is 3 years out. She reports atypical chest pain including dysphagia from a symptomatic hiatal hernia. She presents for repair. At height of 5 feet 5 inches, her ideal body weight is 149 pounds. Her highest weight was 260 pounds, body mass index of 43.4. She has lost over 58 pounds lifetime. Percent lifetime excess weight loss of over 52%. Her body mass index is 32.4. PAST MEDICAL HISTORY: 1. Morbid obesity due to excess calories 2. Body mass index of 43.4, initial 3. Hypothyroidism 4. Depressive disorder 5. Gastroesophageal reflux disease with hiatal hernia PAST SURGICAL HISTORY: 1. Gastric bypass, 2014 2. Hysterectomy 3. Sleeve gastrectomy to gastric bypass, February 2021 HOME MEDICATIONS: Reviewed ALLERGIES: Reviewed SOCIAL HISTORY: Denies past tobacco use. FAMILY HISTORY: No family history of ulcerative colitis disease or Crohn's disease. Family history of morbid obesity. No lupus in the family. No reports of stomach or esophageal cancer. REVIEW OF ORGAN SYSTEMS: CONSTITUTIONAL: At height of 5 feet 5 inches, her ideal body weight is 149 pounds. Her highest weight was 260 pounds, body mass index of 43.4. She comes in 180 pounds. She has lost 80 pounds lifetime. Percent lifetime excess weight loss of 72%. Her body mass index is 30.0. She is 31 pounds overweight. HEENT: Denies any active troubles with vision or hearing. Has troubles with swallowing. ENDOCRINE: Denies diabetes. No hypothyroidism. CARDIOVASCULAR: Past reports of palpitations or heart attacks or chest pain. RESPIRATORY: Denies daytime somnolence. Denies dysnea. GASTROINTESTINAL: Denies any bright red blood per rectum. No diarrhea. No constipation. Has gastroesophageal reflux disease. GENITOURINARY: Denies bladder urgency. No recent blood in urine MUSCULOSKELETAL: Has lower back pain and joint pain. NEURO: No headaches. No seizure disorders. PSYCH: Has depression. No suicidal ideation. RHEUMATOLOGIC: No lupus. No rheumatoid arthritis. HEMATOLOGIC: Denies any abnormal bleeding or bruising. SKIN: No rash. No skin cancer. PHYSICAL EXAM: VITAL SIGNS: Height 5 foot 5 inches, weight 202 pounds. BMI 33.6 GENERAL: Well-developed in no acute distress. HEENT: No scleral icterus. Extraocular movements grossly intact. Hears conversational speech. No nasal drainage. NECK: Supple without lymphadenopathy. CHEST: Nonlabored respirations with equal bilateral excursions. CARDIOVASCULAR: Regular rate and regular rhythm. Distal 2+ pulses. ABDOMEN: Obese, soft, nontender, nondistended. MUSCULOSKELETAL: No clubbing, cyanosis. NEURO: No focal or lateralizing signs. Cranial nerves 2 through 12 grossly within normal limits. PSYCH: Appropriate affect. Alert and oriented to person, place and time. SKIN: Good skin turgor. Well perfused. EGD FINDINGS: Squamocolumnar junction unremarkable at 38 cm. Stricture of approximately 15 mm encountered. Chronic gastrojejunal ulceration encountered, 3 mm, marginal ulceration Successful balloon dilatation to 20 mm. Diaphragmatic hiatus at 40 cm. Diaphragmatic hiatal hernia 2 cm Gastric pouch 3 cm. REPORTS: Cardiology risk assessment obtained. ASSESSMENT: 1. Diaphragmatic hiatal hernia with dysphagia 2. Morbid obesity due to excess calories, Body mass index of 43.4 to 32.4 3. Hypothyroidism 4. Depressive disorder 5. Gastroesophageal reflux disease with hiatal hernia 6. 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 7. Complications of sleeve gastrectomy. 8. Dysphagia 9. Gastrojejunal stricture 10. 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 Zinc deficiency 13. Elevated LFTs 14. Iron deficiency 15. Hypertriglyceridemia 16. Chronic gastrojejunal ulcer PLAN: 1. Recommend proceeding with a robotic paraesophageal hiatal hernia with possible mesh. 2. Benefits and risks of surgical intervention was discussed including possibility of open technique. 3. Inpatient hospitalization recommended of 2 nights 4. DVT prophylaxis. 5. Antibiotic prophylaxis. 6. She has also completed a very low caloric high-protein diet to address underlying hepatomegaly. 7. Non narcotic pain management including abdominal wall block described 8. Blood sugar glucose described. 9. Weight loss management described. 10. She is elevated risk due to co-morbidities including cardiac disease. Past Medical History Past Medical History: GERD/Reflux, Thyroid Disorder Additional Past Medical History / Comment(s): dysphagia, osteoporosis History of Any Multi-Drug Resistant Organisms: None Reported Past Surgical History: Bariatric Surgery, Hysterectomy Additional Past Surgical History / Comment(s): sleeve gastrectomy 2015 conversion to gastric bypass 03-17, egd with dilation 05/31/21. Past Anesthesia/Blood Transfusion Reactions: Postoperative Nausea & Vomiting (PONV) Additional Past Anesthesia/Blood Transfusion Reaction / Comment(s): SLOW TO WAKE UP WITH ANESTHESIA Smoking Status: Never smoker - Past Family History Father Family Medical History: Cancer Additional Family Medical History / Comment(s): LUNG CANCER Mother Family Medical History: Cancer Additional Family Medical History / Comment(s): PANCREATIC CANCER Brother(s) Family Medical History: Cancer Additional Family Medical History / Comment(s): COLON , LUNG CANCER Medications and Allergies Home Medications Medication Instructions Recorded Confirmed Type Omeprazole 40 mg PO BID 05/07/21 12/13/23 History PARoxetine [Paxil] 20 mg PO HS 05/07/21 12/13/23 History Calcium Carbonate [Calcium] 600 mg PO BID 11/02/22 12/13/23 History Levothyroxine Sodium 100 mcg PO QAM 11/02/22 12/13/23 History Sucralfate [Carafate] 1 gm PO BID #120 tablet 02/01/23 12/13/23 Rx Cholecalciferol (Vitamin D3) 50 mcg PO DAILY 12/13/23 12/13/23 History [Vitamin D3 (50 Mcg = 2000 Iu)] Allergies Allergy/AdvReac Type Severity Reaction Status Date / Time Sulfa (Sulfonamide Allergy Rash/Hives Verified 12/13/23 13:29 Antibiotics)
[~2023-12-18 07:22] MED LIST changes: +HYDROmorphone 0.5 MG/0.5 ML SYRINGE IVP PRN; -LACTATED RINGERS 1,000 ML IV ONE; -LACTATED RINGERS 1,000 ML IV SCH; +LIDOCAINE 1% (10MG/ML) FOR IV START INTRADERMA PRN; +MIDAZOLAM 2 MG/2 ML VIAL IV PRN; +ONDANSETRON 4 MG/2 ML VIAL IVP PRN
[2023-12-18] MEDS: LACTATED RINGERS 1,000 ML IV SCH (07:59)
[2023-12-18] MEDS: ACETAMINOPHEN TAB 500 MG TAB PO PRN (08:07)
[2023-12-18] MEDS: ONDANSETRON 4 MG/2 ML VIAL IVP ONE (08:07)
[2023-12-18] MEDS: DEXAMETHASONE SOD PHOSPHATE 4 MG/ML 1 ML VIAL IV ONE (08:07)
[2023-12-18] MEDS: HEPARIN SODIUM,PORCINE 5,000 UNIT/ML 1 ML VIAL SQ PRN (08:08)
[2023-12-18] MEDS: SCOPOLAMINE 1 MG/72 HR PATCH TRANSDERM ONE (08:12)
[2023-12-18] MEDS ORDERED: SUCCINYLCHOLINE CHLORIDE 200 MG/10 ML VIAL IV ONE (08:49)
[2023-12-18] MEDS ORDERED: GLYCOPYRROLATE 0.2 MG/ML 2 ML VIAL ONE (08:49)
[2023-12-18] MEDS ORDERED: ROCURONIUM 10 MG/ML (5 ML VIAL) IV ONE (08:49)
[2023-12-18] MEDS ORDERED: HYDROmorphone (PF) 1 MG/ML ONE (08:49)
[2023-12-18] MEDS ORDERED: PROPOFOL 10 MG/ML 20 ML VIAL IV ONE (08:49)
[2023-12-18] MEDS ORDERED: fentaNYL (PF) 50 MCG/ML 2 ML AMP ONE (08:49)
[2023-12-18] MEDS ORDERED: MIDAZOLAM 2 MG/2 ML VIAL ONE (08:49)
[2023-12-18] MEDS ORDERED: NEOSTIGMINE 1 MG/ML 10 ML VIAL ONE (08:49)
[2023-12-18] MEDS ORDERED: LIDOCAINE 1% INJ 10MG/ML (20 ML MDV) ONE (08:49)
[2023-12-18] MEDS: metroNIDAZOLE-NS PMX 500 MG in SALINE 1 100ML.BAG IVPB PRN (09:08)
[2023-12-18] MEDS: LIDOCAINE 1%-EPI 1:100,000 20 ML VIAL SQ ONE (09:22)
[2023-12-18] MEDS: LACTATED RINGERS 1,000 ML IV ONE (10:50)
[2023-12-18] MEDS ORDERED: HYDROmorphone 1 MG/ML 1 ML SYRINGE IVP PRN (11:38)
[2023-12-18] MEDS ORDERED: NALOXONE 0.4 MG/ML 1 ML VIAL IV PRN (11:39)
[2023-12-18] MEDS ORDERED: diphenhydrAMINE 50 MG/ML 1 ML VIAL IVP PRN (11:40)
--- NOTE | 2023-12-18 11:50 | P.OP ---
Date of Procedure: 12/18/23 Description of Procedure: SURGEON: DAHLIA BROWN MD PREOPERATIVE DIAGNOSES: 1. Diaphragmatic hiatal hernia with dysphagia 2. Morbid obesity due to excess calories, Body mass index of 43.4 to 32.4 3. Hypothyroidism 4. Depressive disorder 5. Gastroesophageal reflux disease with hiatal hernia 6. 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 7. Complications of sleeve gastrectomy. 8. Dysphagia 9. Gastrojejunal stricture 10. 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 Zinc deficiency 13. Elevated LFTs 14. Iron deficiency 15. Hypertriglyceridemia 16. Chronic gastrojejunal ulcer POSTOPERATIVE DIAGNOSES: 1. Diaphragmatic hiatal hernia with dysphagia 2. Morbid obesity due to excess calories, Body mass index of 43.4 to 32.4 3. Hypothyroidism 4. Depressive disorder 5. Gastroesophageal reflux disease with hiatal hernia 6. 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 7. Complications of sleeve gastrectomy. 8. Dysphagia 9. Gastrojejunal stricture 10. 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 Zinc deficiency 13. Elevated LFTs 14. Iron deficiency 15. Hypertriglyceridemia 16. Chronic gastrojejunal ulcer 17. Severe epigastric adhesions OPERATION: 1. Robotic-assisted da Chrissy Xi laparoscopic reduction and repair of recurrent incarcerated paraesophageal hiatal hernia, 4 x 3 cm, with [place] Biopatch A 8 x 8 cm. 2. Robotic-assisted da Chrissy Xi laparoscopic extensive lysis of adhesions over 1.5 hours, over 50% of the case 3. Intraoperative esophagogastroscopy ANESTHESIA: General with local anesthetic. ESTIMATED BLOOD LOSS: 5 mL Pathology: None COMPLICATIONS: None. FINDINGS: 1. Severe adhesions along the hiatus from prior hiatal hernia repair 2. Extensive lysis of adhesions over 1.5 hours performed 3. Incarcerated upper pole of the stomach within the mediastinum with moderate dissection performed with incision of mediastinal hernia sac, type III paraesophageal hiatal hernia 4. Moderate distortion from adhesions along the hiatus causing functional obstruction of gastric pouch 5. [place] Biopatch A onlay mesh placed. 6. Identified previous hiatal hernia repair with retained suture along posterior hiatus consistent with recurrent incarcerated hiatal hernia, anteriorly 7. Intra-abdominal esophageal length over 3 cm obtained INDICATIONS: The patient is a 58-year-old female who presents with epigastric abdominal pain, dysphagia, history of sleeve gastrectomy to gastric bypass, gastroesophageal reflux recalcitrant to medical therapy with a symptomatic diaphragmatic hiatal hernia. Preoperative workup including upper endoscopy demonstrated hiatal hernia with erosive esophagitis. Given the severity of her symptoms, she had elected for surgical intervention. Benefits and risks including bleeding, infection, recurrence, dysphagia, injury to the lung, need for further surgery was described at length. Informed consent was obtained. DESCRIPTION: The patient was brought into the operating room and placed in supine position. Preoperatively she had received heparin subcutaneously for DVT prophylaxis. After general induction, the abdomen was prepped and draped in standard sterile fashion. The patient had previously voided prior to coming to the operating room. Ioban draping was placed along the abdomen. A timeout protocol was confirmed with the surgical team, for which the patient's name, procedure to be performed including DVT prophylaxis with bilateral SCDs, and preoperative antibiotics were also confirmed. A robotic da Chrissy Xi system was prepped and primed. At 15 cm from the xiphoid to just below the umbilicus, proposed port sites were marked with indelible marker along the left axillary line, left mid-clavicular line with each ports were marked 10 cm from each other. A 5 mm 0 degrees laparoscopic trocar entry was performed along the left upper quadrant. The abdomen was insufflated to 15 mmHg pressure was tolerated well. Diagnostic laparoscopy demonstrated no injury to bowel, viscera. Liver edge was sharp consistent with her 2-week high-protein low carbohydrate diet. Next, one 8 mm robotic port was placed along the right upper abdomen. An 8-mm port was were placed along the left lateral abdominal wall. The camera 8-mm port was maintained along the epigastrium. Another 12 mm port was placed along the left upper abdominal wall after exchanging the 5 mm port. Please note that the ports were placed at least 20 cm away from the target anatomy. Care was taken to check that each robotic arm were safely away from collision with the bed or the patient. The patient was repositioned in reverse Trendelenburg position at 25-degrees after lowering the bed. The robot was docked above the left side of the patient. Using a grasper for arm 3, a grasper for arm 1, including vessel sealer for arm 2, the robotic system was docked and primed as described. Instruments were interchanged by the vet assistant. I had sat at the console. Initial attention was brought to hiatus. Severe adhesion along the hiatus was identified requiring extensive lysis of adhesions over 1.5 hours using vessel sealer. Circumferentially the dissection at the hiatus was performed using vessel sealer including blunt dissection. Previous retained suture was found along the posterior hiatus consistent with a prior repair. The hiatus hernia recurred anteriorly including a retained sac acting as a lead point for recurrence. To prevent any injury to the esophagus including proximal stomach, I performed an intraoperative upper endoscopy with the scope entering along the posterior oropharynx into the distal stomach and left in place as a bougie. The remnant gastrohepatic ligament was cleaved using a vessel sealer. Next, the phrenoesophageal ligament was mobilized and the distal esophagus was mobilized circumferentially. An incarcerated hernia sac was found into the mediastinum. As a result, deep dissection well into the mediastinum was needed to free the gastric pouch where a functional obstruction was identified from the severity of adhesions. The left and right crura was identified. Significant mobilization of the distal to mid esophagus into the mediastinum was performed. Circumferentially, the hernia sac was incised and brought into the abdominal cavity. Care was taken to avoid any gastrotomy to the incarcerated upper pole of the stomach. The measured defect was measured with a ruler consistent with 4 cm axial length and 3 cm in width. After extensive dissection, the distal esophagus at least 3 cm was brought into the abdominal cavity. Once the hiatus and crura was dissected, 2-0 VLOC nonabsorbable suture was placed as a running suture to re-approximate the diaphragmatic hiatus anteriorly. To buttress the repair, a [place] Biopatch A was prepared along the back table and cut in a half canela-hole fashion as to reinforce the repair as an underlay. The m esh was resized anteriorly placed along the crural repair and tagged using 2-0 VLOC. I went to the head of the bed to perform intraoperative esophagogastroduodenoscopy. An Olympus gastroscope was passed through posterior oropharynx, where the squamocolumnar junction was confirmed at 35 cm from the incisors. The hiatus repair was confirmed from the incisors. The stomach was entered. The stomach had been desufflated. No evidence of leaks were found or mucosal defects of the esophagus or stomach. This concluded the endoscopic portion of the case. The robot was undocked from the patient. I re-scrubbed into the case. All instruments and pneumoperitoneum were evacuated from the abdominal cavity. The incisions were cleansed with dilute hydrogen peroxide with saline solution. Incisions were reapproximated using 4-0 Monocryl in an interrupted subcuticular fashion. The 12-mm port site fascial defect was less than 8 mm in size. Exofin was applied to the skin. Local anesthetic was infiltrated in all wounds for postop analgesia. Intra- abdominal films were obtained. At the end of the procedure, needle, sponge, and instrument count was verified correct by the manager surgical. The patient had tolerated the procedure well and was taken to the postanesthesia unit in stable condition. Intraoperative films were reviewed with the patient's family who were pleased with the level of care.
[2023-12-18] MEDS: ALBUTEROL NEBULIZED 2.5 MG/3 ML INHALATION SCH (15:08)
[2023-12-18] MEDS: ACETAMINOPHEN IV (For NPO) 1,000 MG in EMPTY BAG 1 BAG IVPB SCH (15:08)
[2023-12-18] MEDS: SIMETHICONE 80 MG CHEWABLE PO SCH (15:08)
[2023-12-18] MEDS: HYOSCYAMINE ORAL DROPS 1.875 MG/15 ML BOTTLE PO SCH (15:08)
[2023-12-18] MEDS: DEXAMETHASONE SOD PHOSPHATE 4 MG/ML 1 ML VIAL IVP SCH (15:08)
--- NOTE | 2023-12-18 15:36 | FL ---
SINGLE CONTRAST ESOPHAGRAM: CLINICAL HISTORY: 58-year-old female rule out leak/obstruction. Patient with previous sleeve gastrec pasha converted to a Monet-en-Y gastric bypass. Presently, patient is status post hiatal hernia repair. TECHNIQUE: Single contrast exam performed with a total of 10 mL Isovue-370 contrast. Total fluoroscopy time 42 seconds. Total images: None. Real-time fluoroscopy support was provided to speech pathology. Total DAP: 10 mGycm2. FINDINGS: The patient only took one swallow of contrast and the contrast persistently pooled at the distal esop hagus. Episodes of intraesophageal reflux are encountered and the esophagus traced to propulse the co ntrast into the stomach. There is only a trace threadlike trickle seen below the GE junction. Trace p ostsurgical free air below both hemidiaphragms. Unable to adequately assess the due to obstruction. IMPRESSION: Severe obstruction at the GE junction probably on the basis of postoperative edema. Short interval fo llow-up recommended to ensure adequate passage of contrast and to rule out leak. Trace postsurgical f ree air on both sides.
[2023-12-18] MEDS: METOCLOPRAMIDE 5 MG/ML 2 ML VIAL IVP SCH (16:13)
[2023-12-18] MEDS: SODIUM CHLORIDE 0.9% 1,000 ML IV ONE (16:37)
[2023-12-18] MEDS: 0.9% NACL WITH KCL 20 MEQ/L 1,000 ML IV SCH (16:38)
[2023-12-18] MEDS: ONDANSETRON 4 MG/2 ML VIAL IVP SCH (16:38)
[2023-12-18] MEDS: SCOPOLAMINE 1 MG/72 HR PATCH TRANSDERM STA (16:38)
[2023-12-18] MEDS: HEPARIN SODIUM,PORCINE 5,000 UNIT/ML 1 ML VIAL SQ SCH (20:58)
[2023-12-18] MEDS ORDERED: NON FORMULARY DRUG (Omeprazole [Omeprazole] 40 MG Capsule) PO SCH (21:00)
[2023-12-19] MEDS: LEVOTHYROXINE 100 MCG TAB PO SCH (06:09)
[2023-12-19 08:55] VITALS: RESP 16
[2023-12-19] MEDS: 0.9% NACL WITH KCL 20 MEQ/L 1,000 ML IV SCH (09:18)
[2023-12-19] MEDS: PANTOPRAZOLE 40 MG/10 ML VIAL IV SCH (09:19)
[2023-12-19 11:44] LABS: Basophils # (A) 0.02 X 10*3/uL (0.00-0.10); Basophils % (A) 0.3 %; Eosinophils # (A) 0 X 10*3/uL (0.04-0.35); Eosinophils % (A) 0 %; HCT 35.3 % (37.2-46.3); HGB 11.3 g/dL (12.0-15.0); Lymphocytes # (A) 0.96 X 10*3/uL (0.90-5.00); Lymphocytes % (A) 14.7 %; MCH 30.6 pg (27.0-32.0); MCV 95.7 FL (80.0-97.0); Mean Platelet Volume 11.1 FL (9.5-12.2); Monocytes # (A) 0.18 X 10*3/uL (0.20-1.00); Monocytes % (A) 2.8 %; NRBC Per 100 WBC 0 X 10*3/uL (0.00-0.01); Neutrophils # (A) 5.36 X 10*3/uL (1.80-7.70); Platelet Count 213 X 10*3/uL (140-440); RBC 3.69 X 10*6/uL (4.10-5.20); WBC 6.53 X 10*3/uL (4.50-10.00)
[2023-12-19 11:57] LABS: Blood Urea Nitrogen 12.4 mg/dL (9.0-27.0); Calcium 7.6 mg/dL (8.7-10.3); Carbon Dioxide 21.3 mmol/L (21.6-31.8); Chloride 110 mmol/L (96-109); Magnesium 2.3 mg/dL (1.5-2.4); Phosphorus 2.4 mg/dL (2.4-5.1); Potassium 4.4 mmol/L (3.5-5.5); Sodium 143 mmol/L (135-145)
[2023-12-19 13:30] VITALS: BP 110/67; PULSE 66; TEMP 97.8
[2023-12-19 14:16] VITALS: BMI 33.3
--- NOTE | 2023-12-19 14:50 | FL ---
SINGLE CONTRAST ESOPHAGRAM: CLINICAL HISTORY: 58 year-old female recent hiatal hernia repair and postoperative obstruction at th e surgical site. TECHNIQUE: Single contrast exam performed with 50 ml Isovue-370 contrast. Total fluoroscopy time 1 minute 33 seconds Total images: 20 Total DAP: 25 mGycm2. FINDINGS: The patient swallowed oral contrast without difficulty or delay. There is initial pooling of contras t in the distal esophagus with subsequent swallow, progressively increasing passage across the GE ruth ction. Still, the junction remains mildly narrowed. Episodes of intraesophageal reflux and tertiary p eristaltic waves. There is no contrast extravasation to suggest leak. Contrast flows into the proxima l most stomach and then across the gastrojejunostomy. No postsurgical free air seen. IMPRESSION: Significant interval improvement in the previous obstruction at the GE junction. Relative mild obstru ction remains, likely residual postoperative edema. No evidence for leak. Resolution of previous post surgical free air.
--- NOTE | 2023-12-19 14:59 | P.DS ---
Providers Expected date of discharge: 12/19/23 Attending physician: Nicole Hernandez Primary care physician: Kris Us MD Hospital Course: Discharge diagnosis 1. Diaphragmatic hiatal hernia with dysphagia 2. Morbid obesity due to excess calories, Body mass index of 43.4 to 32.4 3. Hypothyroidism 4. Depressive disorder 5. Gastroesophageal reflux disease with hiatal hernia 6. 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 7. Complications of sleeve gastrectomy. 8. Dysphagia 9. Gastrojejunal stricture 10. 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 Zinc deficiency 13. Elevated LFTs 14. Iron deficiency 15. Hypertriglyceridemia 16. Chronic gastrojejunal ulcer 17. Severe epigastric adhesions 18. Obstruction at the GE junction likely due to postoperative edema Hospital course The patient is a 58-year-old female who presents with epigastric abdominal pain, dysphagia, history of sleeve gastrectomy to gastric bypass, gastroesophageal reflux recalcitrant to medical therapy with a symptomatic diaphragmatic hiatal hernia. She is status post Robotic-assisted da Chrissy Xi laparoscopic reduction and repair of recurrent incarcerated paraesophageal hiatal hernia and lysis of adhesions. Patient's initial upper GI head showed obstruction at the GE junction likely due to postoperative edema. Patient was placed on scheduled Decadron. Repeat upper GI has shown improvement. Patient has been started on liquids and is tolerating. Her pain is controlled. She is up and ambulating. She is afebrile. She is stable for discharge. Physician Tosser note has been reviewed by physician. Signing provider agrees with the documented findings, assessment, and plan of care. Patient Condition at Discharge: Stable Plan - Discharge Summary Discharge Rx Participant: Yes New Discharge Prescriptions: New bisacodyL [Dulcolax] 5 mg PO DAILY PRN #10 tab PRN Reason: Constipation Simethicone 40 mg/0.6 ml Drops [Mylicon Drops] 40 mg PO PCHS PRN #30 ml PRN Reason: Gas Ondansetron Odt [Zofran Odt] 4 mg PO Q8HR PRN #9 tab PRN Reason: Nausea Acetaminophen Tab [Tylenol] 1,000 mg PO Q6HR PRN #30 tablet PRN Reason: Pain Continue Levothyroxine Sodium 100 mcg PO QAM Sucralfate [Carafate] 1 gm PO BID #120 tablet Omeprazole 40 mg PO BID No Action PARoxetine [Paxil] 20 mg PO HS Calcium Carbonate [Calcium] 600 mg PO BID Cholecalciferol (Vitamin D3) [Vitamin D3 (50 Mcg = 2000 Iu)] 50 mcg PO DAILY Discharge Medication List Omeprazole 40 mg PO BID 05/07/21 [History] PARoxetine [Paxil] 20 mg PO HS 05/07/21 [History] Calcium Carbonate [Calcium] 600 mg PO BID 11/02/22 [History] Levothyroxine Sodium 100 mcg PO QAM 11/02/22 [History] Sucralfate [Carafate] 1 gm PO BID #120 tablet 02/01/23 [Rx] Cholecalciferol (Vitamin D3) [Vitamin D3 (50 Mcg = 2000 Iu)] 50 mcg PO DAILY 12/13/23 [History] Acetaminophen Tab [Tylenol] 1,000 mg PO Q6HR PRN #30 tablet 12/19/23 [Rx] Ondansetron Odt [Zofran Odt] 4 mg PO Q8HR PRN #9 tab 12/19/23 [Rx] Simethicone 40 mg/0.6 ml Drops [Mylicon Drops] 40 mg PO PCHS PRN #30 ml 12/19/23 [Rx] bisacodyL [Dulcolax] 5 mg PO DAILY PRN #10 tab 12/19/23 [Rx] [facility] [place] [facility] [place] [facility] Activity/Diet/Wound Care/Special Instructions: Liquid diet only for 2 weeks No lifting over 4 pounds in 4 weeks May shower No soaking in bath tubs for 2 weeks Please notify your surgeon if you develop nausea and vomiting including new onset of abdominal pain. Please ambulate at all times. Use Simethicone, Gas-X, Tylenol scheduled for the next 24-48 hours for best pain relief. Use ice along incisions for the today to prevent swelling. Please open, cut, crush pills larger than the size of a tic tack No carbonated beverages. No straws. Do not remove scopolamine patch for 3 days, if present HOLD on taking Paxil and vitamins due to increase bleeding risk with these medications until seen by surgeon Avoiding Gas Avoid drinking through a straw. Do not chew gum or tobacco. These actions cause you to swallow air, which produces excess gas in your stomach. Chew with your mouth closed. Avoid any foods that cause stomach gas and distention. These foods include corn, dried beans, peas, lentils, onions, broccoli, cauliflower and any food from the cabbage family. Avoid carbonated drinks, alcohol, citrus and tomato products. Carbonated drinks (sodas) are not allowed for the first six to eight weeks after surgery. After this time you can try them again in small amounts Clear Liquid Diet The first diet after surgery is the clear liquid diet. It includes the following liquids: Apple juice Cranberry juice Grape juice Chicken broth Beef broth Flavored gelatin (Jell-O) Decaf tea and coffee Caffeinated beverages are permitted based on tolerance [facility] [place] [facility] Full Liquid Diet The full liquid diet contains anything on the clear liquid diet, plus: Milk, soy, rice and almond (no chocolate) Cream of wheat, cream of rice, grits Strained creamed soups (no tomato or broccoli) Vanilla and strawberry-flavored ice cream Sherbet Blended, custard styled or whipped yogurt (plain or vanilla only) Vanilla and butterscotch pudding (no chocolate or coconut) Nutritional drinks including Ensure, Boost, [place] Instant Breakfast (no chocolate-flavored) Note: Dairy products, such as milk, ice cream and pudding, may cause diarrhea in some people just after surgery. You may need to avoid milk products. If so, substitute them with lactose-free beverages, such as soy, rice, Lactaid or almond milks. Discharge Disposition: HOME SELF-CARE
== END 2023-12-19 15:57 | disposition home or self-care (01) ==
LOC: OR 07:22 → 5NMEDONC 13:32 → OR 12-19 15:57
PROVIDERS: ATTEND Surgery Plastic and Reconstructive Surgery
DX: K44.0 Diaphragmatic hernia with obstruction, without gangrene (principal); K66.0 Peritoneal adhesions (postprocedural) (postinfection); E03.8 Other specified hypothyroidism; E50.9 Vitamin A deficiency, unspecified; E61.1 Iron deficiency; E66.01 Morbid (severe) obesity due to excess calories; E78.1 Pure hyperglyceridemia; F32.A Depression, unspecified; K21.9 Gastro-esophageal reflux disease without esophagitis; K28.7 Chronic gastrojejunal ulcer without hemorrhage or perforation; M81.0 Age-related osteoporosis without current pathological fracture; Z68.41 Body mass index [BMI] 40.0-44.9, adult; Z79.890 Hormone replacement therapy; Z88.1 Allergy status to other antibiotic agents; Z88.2 Allergy status to sulfonamides; Z98.84 Bariatric surgery status; Z98.890 Other specified postprocedural states
CPT/HCPCS: 43282; S2900; 74210; 80051; 82310; 82565; 83735; 84100; 84520; 85025; 94640

== ENCOUNTER → 2023-12-22 | Outpatient (CLI) | payer BC ==
--- NOTE | 2023-12-22 09:49 | P.BASOAP ---
Subjective Progress Note Date: 12/22/23 Patient denies moderate reflux. She is tolerating liquids. Intraoperative findings of severe scar tissue removal discussed. Evidence of prior hiatal hernia repair discussed. Recommend continue thin liquids for the next 2 weeks. Close follow-up for next week. Otherwise doing well. She has an allergic reaction to adhesives. She reports bladder sensitivity however no instrumentation was performed for her. Assessment/Plan Plan: Date: Initial Weight: 77.111 kg Initial BMI: Current Weight: Current BMI: Type of Surgery: Total Volume in Band: Previous Volume: Volume Removed: Volume Added: Band Size:
[2023-12-22 11:13] VITALS: BP 116/78; PULSE 66; RESP 14; TEMP 98
== END ==
LOC: BARWHC3 09:06
PROVIDERS: ATTEND Surgery Plastic and Reconstructive Surgery
DX: E66.01 Morbid (severe) obesity due to excess calories (principal); K44.9 Diaphragmatic hernia without obstruction or gangrene; T78.40XD Allergy, unspecified, subsequent encounter; Z91.048 Other nonmedicinal substance allergy status; Z88.2 Allergy status to sulfonamides; Z68.32 Body mass index [BMI] 32.0-32.9, adult
CPT/HCPCS: 99211

== ENCOUNTER → 2023-12-27 | Outpatient (CLI) | payer BC ==
[~2023-12-27] MED LIST changes: +DEXAMETHASONE SOD PHOSPHATE 10 MG/ML 1 ML VIAL IVP STA; -HYDROmorphone 0.5 MG/0.5 ML SYRINGE IVP PRN; -LIDOCAINE 1% (10MG/ML) FOR IV START INTRADERMA PRN; -MIDAZOLAM 2 MG/2 ML VIAL IV PRN; -ONDANSETRON 4 MG/2 ML VIAL IVP PRN
--- NOTE | 2023-12-27 13:20 | P.BASOAP ---
Subjective Progress Note Date: 12/27/23 She has mild nausea. Tolerating liquids. No dysphagia. She had a bladder infection not related. She reports improvement since after her surgery. She has severe allergy. Recommend dexamthasone 10 mg. Assessment/Plan Plan: Date: Initial Weight: 77.111 kg Initial BMI: Current Weight: Current BMI: Type of Surgery: Total Volume in Band: Previous Volume: Volume Removed: Volume Added: Band Size:
[2023-12-27] MEDS: DEXAMETHASONE SOD PHOSPHATE 10 MG/ML 1 ML VIAL IM STA (13:59)
[2023-12-27 14:18] VITALS: BP 106/72; PULSE 71; RESP 16; TEMP 98.4
== END ==
LOC: BARWHC3 13:12
PROVIDERS: ATTEND Surgery Plastic and Reconstructive Surgery
DX: T78.40XA Allergy, unspecified, initial encounter (principal)
CPT/HCPCS: 99211; 96372; J1100

== ENCOUNTER → 2024-01-31 | Outpatient (CLI) | payer BC ==
[2024-01-31 14:05] VITALS: BP 137/83; PULSE 67; RESP 16; TEMP 98.2; BMI 32.8
--- NOTE | 2024-01-31 14:54 | P.BASOAP ---
Subjective Progress Note Date: 01/31/24 DATE OF SERVICE: 01/31/24 CHIEF COMPLAINT: Status post hiatal hernia repair HISTORY OF PRESENT ILLNESS: Mary New) is a 58-year-old female who had a sleeve gastrectomy, Jul 2015. She had her gastric bypass conversion February 2021. She is 9 years out from sleeve gastrectomy. She is 3 years out from her gastric bypass conversion. She is now status post hiatal hernia repair, 12/18/2023, is over 4 weeks out. At home, she lost 1 pound per week. She is not monitoring her dietary intake. No recurrent gastroesophageal reflux disease. At height of 5 feet 5 inches, her ideal body weight is 149 pounds. Her highest weight was 260 pounds, body mass index of 43.4. She comes in 197 pounds from 227 pounds, 6 months. She has lost 30 pounds in 6 months. She has lost 63 pounds lifetime. Percent lifetime excess weight loss of 57%. Her body mass index is 32.8. She is 48 pounds overweight. PHYSICAL EXAM: VITAL SIGNS: Height 5 foot 5 inches, weight 197 pounds. BMI 32.8 Vital Signs Temp 98.2 F 01/31/24 14:03 Pulse 67 01/31/24 14:03 Resp 16 01/31/24 14:03 BP 137/83 01/31/24 14:03 Pulse Ox FiO2 GENERAL: Well-developed in no acute distress. HEENT: No scleral icterus. Extraocular movements grossly intact. Hears conversational speech. No nasal drainage. NECK: Supple without lymphadenopathy. CHEST: Nonlabored respirations with equal bilateral excursions. CARDIOVASCULAR: Regular rate and regular rhythm. Distal 2+ pulses. ABDOMEN: Obese, soft, nontender, nondistended. MUSCULOSKELETAL: No clubbing, cyanosis. NEURO: No focal or lateralizing signs. Cranial nerves 2 through 12 grossly within normal limits. PSYCH: Appropriate affect. Alert and oriented to person, place and time. SKIN: Good skin turgor. Well perfused. ASSESSMENT: 1. Morbid obesity due to excess calories 2. Body mass index of 43.4 to 32.8 3. Hypothyroidism 4. Depressive disorder 5. Gastroesophageal reflux disease with hiatal hernia 6. 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 7. Complications of sleeve gastrectomy. 8. Dysphagia 9. Gastrojejunal stricture 10. 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 Zinc deficiency 13. Elevated LFTs 14. Iron deficiency 15. Hypertriglyceridemia 16. Chronic gastrojejunal ulcer 17. Diaphragmatic hiatal hernia, close hiatal hernia repair 18. Dietary surveillance and counseling PLAN: 1. Recommend protein intak dailye 80 grams. 2. Recommend fluid intake of target daily 80 oz 3. Recommend carbohydrate intake or less 80 grams. 4. Recommend food diary journal 5. She is over 4 weeks from surgery and may be off restrictions Objective - Vital Signs Vital signs: Vital Signs Temp 98.2 F 01/31/24 14:03 Pulse 67 01/31/24 14:03 Resp 16 01/31/24 14:03 BP 137/83 01/31/24 14:03 Pulse Ox FiO2 Intake & Output 01/30/24 01/31/24 01/31/24 18:59 06:59 18:59 Weight 89.358 kg Assessment/Plan Plan: Date: 01/31/24 Initial Weight: 77.111 kg Initial BMI: 28.3 Current Weight: 89.358 kg Current BMI: 32.8 Type of Surgery: Total Volume in Band: Previous Volume: Volume Removed: Volume Added: Band Size:
== END ==
LOC: BARWHC3 13:12
PROVIDERS: ATTEND Surgery Plastic and Reconstructive Surgery
DX: E66.01 Morbid (severe) obesity due to excess calories (principal); E03.9 Hypothyroidism, unspecified; F32.A Depression, unspecified; K21.9 Gastro-esophageal reflux disease without esophagitis; K44.9 Diaphragmatic hernia without obstruction or gangrene; R13.10 Dysphagia, unspecified; K31.2 Hourglass stricture and stenosis of stomach; E50.9 Vitamin A deficiency, unspecified; E03.8 Other specified hypothyroidism; E60 Dietary zinc deficiency; R79.89 Other specified abnormal findings of blood chemistry; E61.1 Iron deficiency; E78.1 Pure hyperglyceridemia; K28.7 Chronic gastrojejunal ulcer without hemorrhage or perforation; K91.89 Other postprocedural complications and disorders of digestive system; K95.89 Other complications of other bariatric procedure; Z71.3 Dietary counseling and surveillance; Z68.32 Body mass index [BMI] 32.0-32.9, adult; Z98.84 Bariatric surgery status; Z90.3 Acquired absence of stomach [part of]; Z88.2 Allergy status to sulfonamides; Z91.048 Other nonmedicinal substance allergy status; Z79.890 Hormone replacement therapy
CPT/HCPCS: 99211